=== PATIENT | female | born 1990 | race Caucasian/White ===

== ENCOUNTER → 2020-10-27 | Outpatient (CLI) | payer SELFPAY ==
--- NOTE | 2020-10-27 12:10 | REP ---
INDICATION: EFW/JEFFREY/TWIN ZYGOSITY TWIN GESTATION. COMPARISON: None. TECHNIQUE: Transabdominal obstetric sonography. Multiple gestation. FINDINGS: Scanning through the gravid uterus demonstrates a diamniotic twin intrauterine gestation, appears to be dichorionic but not completely confident in this period normal symmetric growth is seen. Study is inhibited some degree by crowding. Fetus A is cephalic with heart rate 136 beats per minute. Placenta is right posterior. Amniotic fluid is subjectively normal. Maximum vertical pocket measures 6.0 cm. Fetus B is variable in lie. Posterior right lateral placenta. heart rate 124 beats per minute. Amniotic fluid surrounding fetus B is normal MVP depth 5.2 cm. The following anatomic structures are seen today in fetus A and felt to be unremarkable: Cerebral ventricles, choroid plexus, lungs, four-chamber heart with left and right ventricular outflow tract views, diaphragm, left-sided stomach, abdominal wall cord insertion, left kidney, urinary bladder, spine, and three-vessel cord. The following anatomic structures are less than optimally seen in fetus a: Cisterna magna, face and profile nose and lips, right kidney, upper and lower extremities. Biometry chart fetus A: BPD 8.1 cm, 32 weeks 4 days Head circumference 29.2 cm, 32 weeks 1 day Abdominal circumference 29.0 cm, 33 weeks 0 days Femur length 6.1 cm, 31 weeks 3 days Humeral length 5.4 cm, 31 weeks 1 day HC AC ratio normal 1.01 Cephalic index normal 0.79 Estimated weight 1968 g, 4 lb 5 oz, 58th percentile for 32 weeks 1 day The following anatomic structures are identified in fetus B and felt to be unremarkable today: cranium, cerebral ventricles and choroid plexus and falx, lungs, four-chamber heart with left and right ventricular outflow tract views, diaphragm, left-sided stomach, abdominal wall cord insertion, left and right kidney, urinary bladder, spine, three-vessel cord. The following anatomic structures are less than optimally seen in fetus B: Fair it cerebellum, face and profile, nose and lips, upper and lower extremities. Biometry chart: Fetus B. BPD 8.3 cm, 33 weeks 4 days Head circumference 30.0 cm, 33 weeks 2 days Abdominal circumference 27.7 cm, 31 weeks 5 days Femur length 5.9 cm, 30 weeks 6 days Humeral length 5.4 cm, 31 weeks 1 day HC AC ratio normal 1.08 Cephalic index normal 0.78 Estimated weight 1839 g, 4 lb 0 oz, 51st percentile for 32 weeks 1 day IMPRESSION: Diamniotic, likely dichorionic, twin intrauterine gestation. Symmetrical growth. Thirty-two weeks 1 day by LMP, JESSEE by LMP 21 December 2020. <Electronically signed by Garrett Tovar > 10/27/20 [id number]
== END ==
LOC: M RAD 09:39
PROVIDERS: ATTEND Nurse Practitioner Women's Health
DX: O30.093 Twin pregnancy, unable to determine number of placenta and number of amniotic sacs, third trimester (principal); Z3A.32 32 weeks gestation of pregnancy